=== PATIENT | male | born 1980 | race Hispanic/Latino ===

== ENCOUNTER 2020-01-20 17:36 | Emergency (ER) | payer SELFPAY ==
[2020-01-20] MEDS ORDERED: CYCLOBENZAPRINE HCL 10 MG TABLET ONE (18:18)
[2020-01-20] MEDS ORDERED: LIDOCAINE 5% TOPICAL PATCH TP ONE (18:18)
[2020-01-20] MEDS ORDERED: KETOROLAC TROMETHAMINE 30MG/ML ONE (18:18)
== END 2020-01-20 19:36 | disposition home or self-care (01) ==
LOC: EDH 17:36
DX: M54.5 Low back pain (principal)
CPT/HCPCS: 96372; 99283; J1885

== ENCOUNTER 2021-06-08 14:42 | Emergency (ER) | payer SELFPAY ==
[~2021-06-08] VITALS: Ht 157.5 cm; Wt 77.1 kg
[2021-06-08] MEDS ORDERED: ORPHENADRINE CITRATE 30 MG/ML ML ONE (14:50)
[2021-06-08] MEDS ORDERED: OXYCODONE/ACETAMIN 5/325MG TAB ONE (14:51)
[2021-06-08] MEDS ORDERED: KETOROLAC 60 MG VIAL (30MG/ML) ONE (14:51)
[2021-06-08] MEDS ORDERED: DIAZEPAM 5 MG TABLET ONE (17:53)
[2021-06-08] MEDS ORDERED: DIAZEPAM 5 MG TABLET PO ONE (18:00)
[2021-06-08 18:44] LABS: BASOPHILS % (AUTO) 0.2 % (0.0-5.0); EOSINOPHILS % (AUTO) 2.7 % (0.0-8.0); HEMATOCRIT 46.7 % (42-54); LYMPHOCYTES % (AUTO) 25.1 % (21.0-51.0); MEAN CORPUSCULAR HEMOGLOBIN 30.8 pg (27.0-33.0); MEAN CORPUSCULAR HGB CONC 32.8 g/dL (32.0-36.0); MEAN CORPUSCULAR VOLUME 94.2 fL (79-99); MONOCYTES % (AUTO) 8.9 % (3.0-13.0); NEUTROPHILS % (AUTO) 62.8 % (40.0-77.0); PLATELET COUNT (AUTO) 225 K/uL (130-400); RED BLOOD CELL COUNT(AUTO) 4.96 MIL/uL (4.50-6.20); RED CELL DISTRIBUTION WIDTH 11.9 % (11.0-15.5); WHITE BLOOD COUNT (AUTO) 5.8 K/uL (4.8-10.8)
[2021-06-08 18:51] LABS: APPEARANCE,URINE Clear (CLEAR); BILIRUBIN,URINE Negative (NEGATIVE); COLOR,URINE Yellow (YELLOW); GLUCOSE, URINE (UA) Negative (NEGATIVE); KETONES,URINE Negative (NEGATIVE); LEUKOCYTE ESTERASE ,URINE Negative (NEGATIVE); NITRATE,URINE Negative (NEGATIVE); OCCULT BLOOD,URINE Negative (NEGATIVE); PROTEIN,URINE Negative (NEGATIVE)
[2021-06-08] MEDS ORDERED: IBUP-1552 PO (19:12)
[2021-06-08] MEDS ORDERED: CYCL10TA16 PO (19:12)
[2021-06-08 19:14] VITALS: BP 133/75
[2021-06-08 19:16] LABS: CREATININE 1.1 mg/dL (0.5-1.5); POTASSIUM 4.2 mmol/L (3.5-5.1)
[2021-06-08 19:20] LABS: ALBUMIN 4.1 g/dL (3.5-5.0); BILIRUBIN,TOTAL 0.3 mg/dL (0.2-1.0); TOTAL PROTEIN, SERUM 7.4 g/dL (6.0-8.3)
== END 2021-06-08 19:31 | disposition home or self-care (01) ==
LOC: EDH 14:42
DX: S30.0XXA Contusion of lower back and pelvis, initial encounter (principal); Z79.1 Long term (current) use of non-steroidal anti-inflammatories (NSAID); W11.XXXA Fall on and from ladder, initial encounter; Y93.89 Activity, other specified; Y92.89 Other specified places as the place of occurrence of the external cause; Y99.8 Other external cause status
CPT/HCPCS: 36415; 72100; 72131; 80053; 81003; 85025; 96372 ×2; 99285; J1885; J2360

== ENCOUNTER 2021-11-26 07:27 | Emergency (ER) | payer BC ==
[~2021-11-26] VITALS: Ht 177.8 cm; Wt 72.6 kg
[~2021-11-26 07:27] MED LIST: CYCL10TA16 PO; IBUP-1552 PO
[2021-11-26 09:24] VITALS: BP 110/66
== END 2021-11-26 10:08 | disposition home or self-care (01) ==
LOC: EDH 07:27
DX: U07.1 COVID-19 (principal); Z79.1 Long term (current) use of non-steroidal anti-inflammatories (NSAID)
CPT/HCPCS: 87635; 87804 ×2; 87880; 99283; C9803